=== PATIENT | male | born 1975 | race Caucasian/White ===

== ENCOUNTER 2016-10-08 15:47 | Emergency (ER) | payer SELFPAY ==
[~2016-10-08] VITALS: Ht 180.3 cm; Wt 131.8 kg
[2016-10-08] MEDS ORDERED: STATIN (19:53)
[2016-10-08] MEDS ORDERED: LISINOPRIL5 MG (19:53)
[2016-10-08] MEDS ORDERED: BUSPIRONE5 MG (19:54)
[2016-10-08] MEDS ORDERED: LANTUS PEN100 U/ML SC (19:54)
[2016-10-08] MEDS ORDERED: ZOLOFT25 M1 (19:54)
[2016-10-08] MEDS ORDERED: GLUCOPHAGE (19:54)
[2016-10-08] MEDS ORDERED: KLONOPIN 1MG1 MG (19:55)
[2016-10-08 20:08] VITALS: BP 136/75
== END 2016-10-08 20:06 | disposition home or self-care (01) ==
LOC: ED 15:47
DX: F32.9 Major depressive disorder, single episode, unspecified (principal); F41.9 Anxiety disorder, unspecified; F43.10 Post-traumatic stress disorder, unspecified; Z63.5 Disruption of family by separation and divorce; E11.9 Type 2 diabetes mellitus without complications; Z79.4 Long term (current) use of insulin; Z79.84 Long term (current) use of oral hypoglycemic drugs; I25.10 Atherosclerotic heart disease of native coronary artery without angina pectoris; F17.220 Nicotine dependence, chewing tobacco, uncomplicated; Z56.0 Unemployment, unspecified
CPT/HCPCS: J1815